=== PATIENT | female | born 1965 | race African-American/Black ===

== ENCOUNTER 2019-09-20 13:12 | Observation (INO) | payer OTHER ==
[2019-09-20] VITALS (9 sets, daily range): BP systolic 98–135; BP diastolic 64–91
[~2019-09-20] VITALS: Ht 160 cm; Wt 98.0 kg
[2019-09-20 13:36] LABS: ABSOLUTE NEUTROPHILS 3.8 thou/uL (1.4-8.2); BASOPHILS 0.6 % (0.0-2.0); EOSINOPHILS 15.3 % (0.0-3.0); HEMATOCRIT 39.1 % (37.0-47.0); HEMOGLOBIN 13.4 gm/dL (12.0-15.0); LYMPHOCYTES 27.1 % (24.0-44.0); MCH 31.5 pg (26.0-34.0); MCHC 34.2 g/dL (28.0-37.0); MCV 92.1 fL (80.0-100.0); MONOCYTES 6.1 % (1.0-8.0); PLATELET COUNT 225 thou/uL (150-400); POLYS 50.9 % (36.0-66.0); RBC 4.25 mil/uL (4.20-5.00); RDW 14.2 % (10.5-14.5); WBC 7.6 thou/uL (4.0-11.0)
[2019-09-20 13:48] LABS: ANION GAP 8 mmol/L (7-16); BUN 12 mg/dL (7-18); CALCIUM 9.2 mg/dL (8.5-10.1); CHLORIDE 104 mmol/L (98-107); CO2 27 mmol/L (21-32); CREATININE 1.1 mg/dL (0.6-1.0); GLUCOSE 99 mg/dL (74-106); POTASSIUM 3.2 mmol/L (3.5-5.1); SODIUM 139 mmol/L (136-145)
[2019-09-20 13:58] LABS: TROPONIN-I <0.06 ng/mL (<0.06)
[2019-09-20] MEDS ORDERED: CARVEDILOL25 MG PO (14:42)
[2019-09-20] MEDS ORDERED: ZESTRIL40 MG PO (14:42)
[2019-09-20] MEDS ORDERED: HYDROCHLOROTHIA25 M2 PO (14:42)
[2019-09-20] MEDS ORDERED: PROPRANOLOL 1010 MG PO ×2 (14:43→14:46)
[2019-09-20] MEDS ORDERED: LIPITOR40 MG PO (14:43)
[2019-09-20] MEDS ORDERED: LEXAPRO 10 MG T10 M1 PO (14:44)
[2019-09-20] MEDS ORDERED: SYMBICORT160 MCG/4. INH (14:44)
[2019-09-20] MEDS ORDERED: D3 DOTS50 MCG PO (14:44)
[2019-09-20] MEDS ORDERED: KLOR-CON 10 ER10 MEQ PO (14:45)
[2019-09-20] MEDS ORDERED: SINGULAIR 10 MG10 MG PO (14:45)
[2019-09-20] MEDS ORDERED: NORVASC5 M1 PO (14:46)
[2019-09-20 16:14] LABS: CHOLESTEROL 100 mg/dL (<200); HDL CHOLESTEROL 41 mg/dL (>40); LDL CHOLESTEROL 43 mg/dL (<100); TC:HDL 2.4 Ratio (Not establshd); TRIGLYCERIDE 82 mg/dL (<150); VLDL 16 mg/dL (<40)
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
--- NOTE | 2019-09-20 21:17 | NUR ---
ASSUMED PT CARE AT 1900, PT IS AWAKE, A&OX4, SR ON THE MONITOR, DENIES CHEST PAIN, DULL PAIN ON THE GROIN SITE TO TOUCH, GROIN SITE WITH NO HEMATOMA, PULSES 2+ BLE, AMBULATED ON THE HALLWAY, NO SOA, LIGHTHEADEDNESS OR HEADACHE, PT WILL BE D/C HOME WITH SON, DISCHARGE EDUCATION GIVEN, PT STATES UNDERSTANDING
--- NOTE | 2019-09-20 21:39 | NUR ---
PT DISCHARGED AT 2129 WITH SON, GROIN SITE CLEAN, DRY, INTACT
--- NOTE | 2019-09-24 07:25 | EKG ---
[facility] [place] [address] [address] ELECTROCARDIOGRAM REPORT Name: VENUS COLLIER Room #: [facility] M.R.#: [id number] Admission: 09/20/19 Attend Phys: Pepe Kent MD, Discharge: 09/20/19 Date of : 61 Report #: [id number] THIS REPORT FOR: cc: Peyman Smith MD MPH Peyman Smith MD MPH Charlie Lorenzana MD [facility] ~ THIS REPORT FOR: //name// [facility] ED Test Date: 2019-09-20 Test Time: 13:18:35 Pat Name: VENUS LE Department: Room: [facility] Gender: F 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 : 1965 Requested By: Arcadio Bautista Order Number: [id number] MD: Charlie Lorenzana Measurements Intervals Larue Rate: 60 P: 35 [place]: 179 QRS: -23 QRSD: 102 T: 1 QT: 440 QTc: 440 Interpretive Statements Sinus rhythm Left ventricular hypertrophy Borderline T abnormalities, anterior leads Baseline wander in lead(s) V3 No previous ECG available for comparison Electronically Signed On 09-24-2019 7:25:04 CDT by Charlie Lorenzana [email or web address] <ELECTRONICALLY SIGNED> By: Chralie Lorenzana MD, [facility] 09/24/19 0725 1318 1318 Charlie Lorenzana MD, [facility] /EPI
--- NOTE | 2019-09-24 18:27 | CATHLAB ---
[facility] [place] [address] INVASIVE PROCEDURE REPORT Name: VENUS COLLIER Room #: 212-P [facility] Angel Vallecillo#: [id number] Admission: 09/20/19 Attend Phys: Pepe Kent MD, Discharge: 09/20/19 Date of : 61 Report #: [id number] THIS REPORT FOR: cc: Peyman Smith MD MPH Peyman Smith MD MPH Pepe Kent MD [facility] ~ APPROVED REPORT Study performed: 09/20/2019 15:45:28 Patient Details Patient Status: Out-Patient Room #: The patient is a 54 year-old female Event Personnel Pepe Kent Ham Rolling Machine Operator, Samantha Alatorre RN RN, Margret Shah Monitor, Hoang Rogers RTR Scrub Procedures Performed Art Access - R femoral artery* 00166 Initial Mod Sed Same Phys/QHP Gr5y [id number] Left Heart Cath w/or w/o Coronaries [id number] [facility] Aortogram Abdominal Peripheral Angio 545245 Hemostasis w/ Mynx Indication Non-STEMI Procedure Narrative The patient was brought urgently to the Cardiac Catheterization Laboratory and was prepped and draped in a sterile manner. The Right Groin^ was infiltrated with 1% Lidocaine subcutaneous anesthesia. A PINNACLE 6FR Sheath #[id number] sheath was inserted into the RFA^. Coronary angiography was performed using coronary diagnostic catheters. The right coronary system was accessed and visualized with a JR 4 catheter. The left coronary system was accessed and visualized with a JL 4 catheter. The left ventricle was accessed and visualized with a Pigtail catheter. Left ventriculogram was performed in FIELDS projection. An aortogram of the abdominal aorta was performed. Closure device was deployed with a 6 Fr Mynx. The patient tolerated the procedure well and there were no complications associated with the procedure. There was no hematoma. Intraoperative Conscious Sedation Sedation start time: 16:41 Case end Time: [facility] [place] [address] INVASIVE PROCEDURE REPORT Name: VENUS COLLIER Room #: 212-P [facility] IN M.R.#: [id number] Admission: 09/20/19 Attend Phys: Pepe Kent, Discharge: 09/20/19 Date of : 61 Report #: [id number] 17:02 Fentanyl 100 mcg Versed 2 mg Fluoro Time: 1.30 minutes Dose: DAP 3462.00 cGycm2 390 mGy Contrast Type and Amount: Visipaque 105 ml Hemodynamics The aortic pressure is 115/74 mmHg with a mean of 89 mmHg. Conclusion 1. Left main free of disease giving rise to LAD and circumflex #2 LAD extends around the apex no occlusive disease #3 circumflex OM nondominant but moderate distribution no high-grade disease #4 dominant right coronary no occlusive disease widely patent #5 normal left ventricular size systolic function lower limits of normal EF 50% range #6 abdominal aorta is normal in caliber no aneurysm. Recommendations and plan: Continue aggressive risk factor modification. I explained to the patient she is essentially normal coronary anatomy thus etiology of chest pain appears to be noncardiac. <ELECTRONICALLY SIGNED> By: Pepe Kent MD, [facility] 09/24/191825 25 25 Pepe Kent MD, FACC /INF
== END 2019-09-20 21:30 | disposition home or self-care (01) ==
LOC: ER 13:12 → 2N 18:04
PROVIDERS: Emergency Medicine; Nurse Practitioner Adult Health; ADMIT Internal Medicine Cardiovascular Disease; ATTEND Internal Medicine Cardiovascular Disease
DX: I21.4 Non-ST elevation (NSTEMI) myocardial infarction (principal); I25.110 Atherosclerotic heart disease of native coronary artery with unstable angina pectoris; I10 Essential (primary) hypertension; E78.5 Hyperlipidemia, unspecified; J45.909 Unspecified asthma, uncomplicated; E78.00 Pure hypercholesterolemia, unspecified; F17.290 Nicotine dependence, other tobacco product, uncomplicated